=== PATIENT | female | born 1955 | race Caucasian/White ===

== ENCOUNTER 2016-04-27 11:42 | Emergency (ER) | payer BC ==
[2016-04-27 14:00] VITALS: BP 144/67
--- NOTE | 2016-04-27 14:26 | UC ---
Respiratory Complaint HPI - HPI Summary HPI Summary: Patient has been treated for bronchitis with augmentin and prednisone. still has same symptoms. sinus pressure and drainage and bronchospastic cough, denies fever - History of Current Complaint Chief Complaint: UCGeneralIllness Stated Complaint: COUGH, CHEST CONGESTION Time Seen by Provider: 04/27/16 13:49 Hx Obtained From: Patient ?: No Onset/Duration: Gradual Onset, Still Present Timing: Constant Severity Initially: Moderate Severity Currently: Moderate Pain Intensity: 6 Pain Scale Used: 0-10 Numeric Character: Cough: Nonproductive Aggravating Factors: Deep Breaths, Recumbent Position Alleviating Factors: Nothing Associated Signs And Symptoms: Positive: Wheezing, URI, Nasal Congestion, Sinus Discomfort - Risk Factors Pulmonary Embolism Risk Factors: Negative Cardiac Risk Factors: Negative Pseudomonas Risk Factors: Negative Tuberculosis Risk Factors: Negative - Allergies/Home Medications Allergies/Adverse Reactions: Allergies Allergy/AdvReac Type Severity Reaction Status Date / Time Nystatin Allergy Rash Verified 04/27/16 14:01 Home Medications: Home Medications Levothyroxine Sodium [Levoxyl] 100 mcg PO DAILY 04/27/16 [History Confirmed 12/04] PMH/Surg Hx/FS Hx/Imm Hx Previously Healthy: Yes Endocrine History Of: Reports: Thyroid Disease - hypo - Surgical History Surgical History: Yes Surgery Procedure, Year, and Place: Right foot surgery 04/2015 - Family History Known Family History: Negative: Cardiac Disease, Hypertension - Social History Alcohol Use: None Substance Use Type: None Smoking Status (MU): Never Smoked Tobacco Review of Systems Constitutional: Fatigue Skin: Negative Eyes: Negative ENT: Sore Throat, Ear Ache, Nasal Discharge Respiratory: Cough Cardiovascular: Negative Gastrointestinal: Negative Genitourinary: Negative Motor: Negative Neurovascular: Negative Musculoskeletal: Negative Neurological: Headache Psychological: Negative All Other Systems Reviewed And Are Negative: Yes Physical Exam Triage Information Reviewed: Yes Appearance: Well-Appearing, Ill-Appearing, Pain Distress Vital Signs: Initial Vital Signs Temp 99.5 F 04/27/16 13:49 Pulse 82 04/27/16 13:49 Resp 16 04/27/16 13:49 BP 144/67 04/27/16 13:49 Pulse Ox 97 04/27/16 13:49 Vital Signs Reviewed: Yes Eye Exam: Normal Eyes: Positive: Conjunctiva Clear ENT: Positive: Pharyngeal erythema, Nasal congestion, Nasal drainage, TMs normal , Muffled/hoarse voice Dental Exam: Normal Neck exam: Normal Neck: Positive: Supple, Nontender, No Lymphadenopathy Respiratory Exam: Normal Respiratory: Positive: Chest non-tender, Lungs clear, Normal breath sounds Cardiovascular Exam: Normal Cardiovascular: Positive: RRR, No Murmur, Pulses Normal Abdominal Exam: Normal Abdomen Description: Positive: Nontender, No Organomegaly, Soft Bowel Sounds: Positive: Present Musculoskeletal Exam: Normal Musculoskeletal: Positive: Strength Intact, ROM Intact, No Edema Neurological Exam: Normal Neurological: Positive: Alert, Muscle Tone Normal Psychological Exam: Normal Skin Exam: Normal UC Diagnostic Evaluation - Laboratory O2 Sat by Pulse Oximetry: 97 Respiratory Course/Dx - Course Course Of Treatment: hx obtained, medication reviewed, exam performed, educated on manual sinus drainage. spacer provided, medication prescribed. - Differential Dx/Diagnosis Differential Diagnosis/HQI/PQRI: Bronchitis, CHF, Influenza, Laryngitis, Sinusitis, Other Provider Diagnoses: URI. bronchospasm Discharge - Discharge Plan Condition: Stable Disposition: HOME Patient Education Materials: Bronchospasm (ED), How to Use a Metered-Dose Inhaler and a Spacer (ED) Referrals: Morena Lunsford NP [Primary Care Provider] - Additional Instructions: Use the spacer with your ventolin every 4 hours as neede for cough. i recommend doing the manual sinus drainage techniques and useing the remedies for sympotms relief that we discussed. Follow up as needed.
== END 2016-04-27 14:46 | disposition home or self-care (01) ==
LOC: UCCORT 11:42
DX: J06.9 Acute upper respiratory infection, unspecified (principal); J98.01 Acute bronchospasm; E03.9 Hypothyroidism, unspecified; Z88.8 Allergy status to other drugs, medicaments and biological substances
CPT/HCPCS: 99211; G0463